=== PATIENT | female | born 1940 | race Caucasian/White ===

== ENCOUNTER 2017-09-19 09:25 | Emergency (ER) | payer MEDICARE, OTHER ==
[2017-09-19] MEDS ORDERED: diphenhydrAMINE INJ 50 MG/ML VIAL IVP STA (09:34)
[2017-09-19] MEDS ORDERED: DEXAMETHASONE 10 MG/ML VIAL IVP STA (09:34)
--- NOTE | 2017-09-19 09:38 | ED Physician Documentation ---
History of Present Illness - Stated complaint Stated Complaint: TOUNGE SWOLLEN/UNABLE TO SWALLOW - Chief complaint Chief Complaint: Allergic Rx - History obtained from History obtained from: Patient - History of Present Illness Timing: Last night - Additonal information Additional information: 77-year-old female who is on lisinopril and has had a recent upper respiratory infection has developed swelling of her tongue last night. She had progression of the swelling and has had some difficulty swallowing she has not had any difficulty breathing. She called her doctor and was told to come to the emergency department. She did start on a Z-Trae 5 days ago for a cough that she has had for 3-1/2 weeks. Review of Systems Constitutional: denies: Fever Eyes: denies: Decreased vision Ears: denies: Ear pain Nose: reports: Rhinorrhea / runny nose, Congestion Throat: reports: Sore throat Cardiac: denies: Chest pain / pressure, Palpitations Respiratory: reports: Cough. 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: Hysterectomy, Oophrectomy - Present Medications Home Medications: Ambulatory Orders Medication Instructions Recorded Confirmed Albuterol [Ventolin Hfa] 200 mg INH 04/15/15 04/15/15 Atenolol 25 mg PO DAILY 04/15/15 04/15/15 Glimepiride 4 mg PO DAILY 04/15/15 04/15/15 Levothyroxine [Synthroid] 50 mcg PO DAILY 04/15/15 04/15/15 Lisinopril 20 mg pe PO DAILY 04/15/15 04/15/15 Simvastatin 20 mg PO DAILY 04/15/15 04/15/15 metFORMIN [Glucophage] 500 mg PO BID 04/15/15 04/15/15 - Allergies Allergies/Adverse Reactions: Allergies Allergy/AdvReac Type Severity Reaction Status Date / Time No Known Drug Allergies Allergy Verified 04/15/15 14:54 - Social History Does the pt smoke?: No Smoking Status: Never smoker Does the pt drink ETOH?: No PD ED PE NORMAL - Vitals Vital signs reviewed: Yes (Hypertensive) - General General: Alert and oriented X 3, No acute distress, Well developed/nourished - HEENT HEENT: Atraumatic, PERRL, EOMI, Other (The right TM was not visible secondary to cerumen the left is clear the mouth shows swelling mostly on the right side of the tongue and this does cause some dysarthria.) - Neck Neck: Supple, no meningeal sign, No bony TTP - Cardiac Cardiac: RRR, No murmur - Respiratory Respiratory: No respiratory distress, Clear bilaterally - Abdomen Abdomen: Soft, Non tender - Back Back: No CVA TTP, No spinal TTP - Derm Derm: Normal color, Warm and dry, No rash - Extremities Extremities: No deformity, No edema - Neuro Neuro: No motor deficit, No sensory deficit Eye Opening: To Voice Verbal: Oriented - Psych Psych: Normal mood, Normal affect Results - Vitals Vitals: Vital Signs - 24 hr 09/19/17 09:31 Respiratory 16 Rate Blood Pressure 175/90 H O2 Saturation 99 Oxygen O2 Source Room air - Labs Labs: Laboratory Tests 09/19/17 10:20 POC Whole Bld Glucose 197 H PD MEDICAL DECISION MAKING - ED course Complexity details: considered differential, d/w patient ED course: 77-year-old female with acute angioedema of the tongue is on lisinopril and has an inflammatory process with a URI present. She is administered dexamethasone 10 mg intravenously as well as diphenhydramine 25 mg intravenously. We will continue her on 25 mg diphenhydramine every 6 hours for 2 days. Departure - Departure Disposition: 01 Home, Self Care Clinical Impression: Angio-edema Qualifiers: Encounter type: initial encounter Qualified Code(s): T78.3XXA - Angioneurotic edema, initial encounter Condition: Stable Instructions: ED Angioedema Follow-Up: Jani Ramos MD [Primary Care Provider] - Comments: Stop your lisinopril and take benadryl 25mg every 6 hours for the next 2 days. Follow up with your primary care doctor about alternative anti-hypertensive medication.
[2017-09-19 11:10] VITALS: BP 141/72
== END 2017-09-19 11:10 | disposition home or self-care (01) ==
LOC: ED 09:25
DX: T78.3XXA Angioneurotic edema, initial encounter (principal); I10 Essential (primary) hypertension; E78.00 Pure hypercholesterolemia, unspecified; E11.9 Type 2 diabetes mellitus without complications; Z79.84 Long term (current) use of oral hypoglycemic drugs; M19.90 Unspecified osteoarthritis, unspecified site
CPT/HCPCS: 96374; 96375; 99283

== ENCOUNTER 2020-06-01 08:57 | Outpatient (CLI) | payer MEDICARE, OTHER ==
[2020-06-01 09:38] LABS: CREATININE 1.4 mg/dL (0.4-1.0)
[2020-06-01 10:14] LABS: CREATININE,URINE 251.2 mg/dL; MICROALBUM/CREATININE RATIO,UR 31.8 ug/mg (<30.0)
== END 2020-06-01 08:58 | disposition home or self-care (01) ==
LOC: LAB 08:57
PROVIDERS: ATTEND Nurse Practitioner Family
DX: E11.49 Type 2 diabetes mellitus with other diabetic neurological complication (principal)
CPT/HCPCS: 36415; 80048; 82043; 82570

== ENCOUNTER 2023-04-15 09:05 | Outpatient (CLI) | payer MEDICARE, OTHER ==
[2023-04-15 09:35] LABS: ALBUMIN 3.9 g/dL (3.2-5.5); BUN - BLOOD UREA NITROGEN 21 mg/dL (6-20); CALCIUM 9.4 mg/dL (8.5-10.3); CARBON DIOXIDE - CO2 29 mmol/L (21-32); CHLORIDE 106 mmol/L (101-111); CHOL/HDL RATIO 3.9 (<4.4); CHOLESTEROL 122 mg/dL; CREATININE 1.3 mg/dL (0.6-1.3); GFR - MDRD 39 (>89); GLUCOSE 153 mg/dL (74-104); HDL CHOLESTEROL 31 mg/dL; LDL CHOLESTEROL,CALCULATED 57 mg/dL; LDL/HDL RATIO 1.8 (<4.4); POTASSIUM 4.3 mmol/L (3.5-4.5); SODIUM 140 mmol/L (135-145); TRIGLYCERIDES 170 mg/dL (48-352); VLDL CHOLESTEROL 34 mg/dL
[2023-04-15 09:47] LABS: CREATININE,URINE 144.2 mg/dL; MICROALBUM/CREATININE RATIO,UR 23.6 ug/mg (<30.0); MICROALBUMIN,URINE 3.4 mg/dL
[2023-04-15 09:51] LABS: THYROID STIMULATING HORMONE 2.76 uIU/mL (0.34-5.60)
== END 2023-04-15 09:06 | disposition home or self-care (01) ==
LOC: LAB 09:05
PROVIDERS: ATTEND Student in an Organized Health Care Education/Training Program
DX: E11.49 Type 2 diabetes mellitus with other diabetic neurological complication (principal)
CPT/HCPCS: 36415; 80061; 80069; 82043; 82570; 83721; 84439; 84443

== ENCOUNTER 2024-01-27 08:32 | Outpatient (CLI) | payer MEDICARE, OTHER ==
[2024-01-27 09:01] LABS: MICROALBUMIN,URINE 2.6 mg/dL
== END 2024-01-27 08:33 | disposition home or self-care (01) ==
LOC: LAB 08:32
PROVIDERS: ATTEND Student in an Organized Health Care Education/Training Program
DX: E11.69 Type 2 diabetes mellitus with other specified complication (principal)
CPT/HCPCS: 82043; 82570

== ENCOUNTER 2024-04-04 08:04 | Outpatient (CLI) | payer MEDICARE, OTHER ==
[2024-04-04 08:28] LABS: ALBUMIN 4.3 g/dL (3.2-5.5); BUN - BLOOD UREA NITROGEN 27 mg/dL (6-20); CARBON DIOXIDE - CO2 27 mmol/L (21-32); CHLORIDE 106 mmol/L (101-111); CHOL/HDL RATIO 3.4 (<4.4); CHOLESTEROL 129 mg/dL; CREATININE 1.3 mg/dL (0.6-1.3); GFR - MDRD 39 (>89); GLUCOSE 116 mg/dL (74-104); HDL CHOLESTEROL 38 mg/dL; LDL CHOLESTEROL,CALCULATED 70 mg/dL; LDL/HDL RATIO 1.8 (<4.4); PHOSPHORUS 3.5 mg/dL (2.5-5.0); POTASSIUM 4.3 mmol/L (3.5-4.5); SODIUM 139 mmol/L (135-145); TRIGLYCERIDES 106 mg/dL; VLDL CHOLESTEROL 21 mg/dL
[2024-04-04 08:44] LABS: THYROID STIMULATING HORMONE 4.37 uIU/mL (0.34-5.60)
== END 2024-04-04 08:05 | disposition home or self-care (01) ==
LOC: LAB 08:04
PROVIDERS: ATTEND Student in an Organized Health Care Education/Training Program
DX: E11.69 Type 2 diabetes mellitus with other specified complication (principal)
CPT/HCPCS: 36415; 80061; 80069; 83721; 84439; 84443